=== PATIENT | female | born 1975 | race Two or more races ===

== ENCOUNTER 2020-09-02 03:48 | Emergency (ER) | payer SELFPAY ==
[~2020-09-02] VITALS: Ht 157.5 cm; Wt 80.7 kg
[2020-09-02] MEDS ORDERED: KETOROLAC TROMETH 30 MG/ML 1ML VIAL IV ONE (08:45)
[2020-09-02] MEDS ORDERED: ONDANSETRON HCL 4 MG/2 ML VIAL IV ONE (08:45)
[2020-09-02] MEDS ORDERED: SODIUM CHLORIDE 0.9% 1,000 ML IV ONE ×2 (08:45)
[2020-09-02] MEDS ORDERED: cefTRIAXone 1GM/50ML D5W 50 ML IV ONE (08:45)
[2020-09-02] MEDS ORDERED: TAMSULOSIN HYDROCHLORIDE 0.4 MG CAP PO ONE (08:45)
[2020-09-02 09:37] LABS: Basophils # (auto) 0 10 ^3/uL (0-0.2); Basophils % (auto) 0.2 % (0.0-2.0); Eosinophils # (auto) 0 10 ^3/uL (0-0.8); Hemoglobin 15.4 g/dL (12.2-16.2); Lymphocytes # (auto) 1.6 10 ^3/uL (0.4-5.4); Lymphocytes % (auto) 12.3 % (10.0-50.0); Mean Corpuscular Hemoglobin 30.6 pg (28.0-32.0); Mean Corpuscular Hgb Conc. 32.8 g/dL (32.0-36.0); Mean Corpuscular Volume 93.4 fL (80.0-100.0); Monocytes # (auto) 0.5 10 ^3/uL (0-1.3); Monocytes % (auto) 3.8 % (0.0-12.0); Neutrophils # (auto) 10.9 10 ^3/uL (1.6-8.6); Neutrophils % (auto) 83.7 % (37.0-80.0); Nucleated Red Blood Cells % 0.2 %; Platelet Count (auto) 269 10^3/uL (140-450); Red Blood Cells 5.03 10^6/uL (4.0-5.20); Red Cell Distribution Width 13.3 % (11.8-14.3)
[2020-09-02 09:42] LABS: Urine Bacteria FEW /hpf (None Seen); Urine Blood 1+ /uL (Negative); Urine Specific Gravity 1.018 (1.001-1.035); Urine WBC 4 /hpf (0 - 5)
[2020-09-02 09:54] LABS: Albumin 4.4 g/dL (3.4-5.0); Calcium 9.4 mg/dL (8.5-10.1); Potassium 3.8 mmol/L (3.5-5.1)
[2020-09-02 09:57] LABS: BUN/Creatinine Ratio 20.8; Bilirubin, Total 0.4 mg/dL (0.2-1.0); Total Protein 8.7 g/dL (6.4-8.2)
[2020-09-02 12:19] VITALS: BP 129/74
== END 2020-09-02 13:18 | disposition home or self-care (01) ==
LOC: ER 03:51
DX: N13.2 Hydronephrosis with renal and ureteral calculous obstruction (principal)
CPT/HCPCS: 36415; 74176; 80053; 81001; 83690; 85025; 96365; 96375; 99284; J1885; J2405

== ENCOUNTER 2022-01-12 00:17 | Emergency (ER) | payer OTHER ==
[~2022-01-12] VITALS: Ht 157.5 cm; Wt 83.9 kg
[2022-01-12] MEDS ORDERED: diphenhdrAMINE HCL 25 MG CAP PO ONE (00:45)
[2022-01-12] MEDS ORDERED: KETOROLAC TROMETH 30 MG/ML 1ML VIAL IV ONE (00:45)
[2022-01-12] MEDS ORDERED: ONDANSETRON HCL 4 MG/2 ML VIAL IV ONE (00:45)
[2022-01-12] MEDS ORDERED: SODIUM CHLORIDE 0.9% 1,000 ML IV ONE (00:45)
[2022-01-12] MEDS ORDERED: IOHEXOL 350 MG/ML 100ML IJ ONE (00:46)
[2022-01-12 01:22] LABS: Basophils # (auto) 0.1 10 ^3/uL (0-0.2); Basophils % (auto) 0.9 % (0.0-2.0); Eosinophils # (auto) 0.1 10 ^3/uL (0-0.8); Eosinophils % (auto) 1.3 % (0.0-7.0); Hematocrit 42.3 % (36.0-46.0); Hemoglobin 14.6 g/dL (12.2-16.2); Lymphocytes # (auto) 2.5 10 ^3/uL (0.4-5.4); Lymphocytes % (auto) 31.4 % (10.0-50.0); Mean Corpuscular Hemoglobin 31.1 pg (28.0-32.0); Mean Corpuscular Hgb Conc. 34.6 g/dL (32.0-36.0); Mean Corpuscular Volume 89.9 fL (80.0-100.0); Monocytes # (auto) 0.6 10 ^3/uL (0-1.3); Neutrophils # (auto) 4.6 10 ^3/uL (1.6-8.6); Neutrophils % (auto) 58.4 % (37.0-80.0); Nucleated Red Blood Cells % 0.1 %; Red Cell Distribution Width 12.8 % (11.8-14.3); White Blood Cell 7.9 10^3/uL (4.4-10.8)
[2022-01-12 01:43] LABS: Albumin 4.1 g/dL (3.4-5.0); BUN/Creatinine Ratio 26.7; Calcium 8.9 mg/dL (8.5-10.1); Potassium 3.7 mmol/L (3.5-5.1)
[2022-01-12 01:45] LABS: Bilirubin, Total 0.4 mg/dL (0.2-1.0); Total Protein 7.8 g/dL (6.4-8.2)
[2022-01-12 02:49] LABS: Urine Bacteria FEW /hpf (None Seen); Urine Blood Negative /uL (Negative); Urine Specific Gravity 1.008 (1.001-1.035); Urine WBC <1 /hpf (0 - 5)
[2022-01-12 05:31] VITALS: BP 104/68
== END 2022-01-12 05:32 | disposition home or self-care (01) ==
LOC: ER 00:17
DX: G43.909 Migraine, unspecified, not intractable, without status migrainosus (principal); E78.5 Hyperlipidemia, unspecified; Z90.710 Acquired absence of both cervix and uterus
CPT/HCPCS: 36415; 70496; 70498; 76705; 80053; 81001; 85025; 96361; 96374; 99285; J2405; J7030; Q9967; J1885

== ENCOUNTER 2022-08-02 10:32 | Emergency (ER) | payer OTHER ==
[~2022-08-02] VITALS: Ht 157.5 cm; Wt 77.0 kg
[2022-08-02 10:33] VITALS: BP 106/78
[2022-08-02 11:04] LABS: Basophils # (auto) 0 10 ^3/uL (0-0.2); Basophils % (auto) 0.4 % (0.0-2.0); Eosinophils # (auto) 0.1 10 ^3/uL (0-0.8); Eosinophils % (auto) 0.9 % (0.0-7.0); Lymphocytes # (auto) 2.3 10 ^3/uL (0.4-5.4); Lymphocytes % (auto) 43.5 % (10.0-50.0); Mean Corpuscular Hemoglobin 30.2 pg (28.0-32.0); Mean Corpuscular Hgb Conc. 33.2 g/dL (32.0-36.0); Monocytes # (auto) 0.3 10 ^3/uL (0-1.3); Monocytes % (auto) 6.5 % (0.0-12.0); Neutrophils # (auto) 2.6 10 ^3/uL (1.6-8.6); Neutrophils % (auto) 48.7 % (37.0-80.0); Nucleated Red Blood Cells % 0.1 %; Red Blood Cells 4.62 10^6/uL (4.0-5.20); White Blood Cell 5.4 10^3/uL (4.4-10.8)
[2022-08-02 11:14] LABS: Urine Bacteria NONE SEEN /hpf (None Seen); Urine Blood Negative /uL (Negative); Urine WBC 1 /hpf (0 - 5)
[2022-08-02 11:22] LABS: Albumin 3.9 g/dL (3.4-5.0); BUN/Creatinine Ratio 14.9; Calcium 8.8 mg/dL (8.5-10.1); Potassium 4.2 mmol/L (3.5-5.1)
[2022-08-02 11:25] LABS: Bilirubin, Total 0.4 mg/dL (0.2-1.0); Total Protein 7.6 g/dL (6.4-8.2)
== END 2022-08-02 12:27 | disposition home or self-care (01) ==
LOC: ER 10:32
DX: R10.9 Unspecified abdominal pain (principal); E78.5 Hyperlipidemia, unspecified; Z90.710 Acquired absence of both cervix and uterus
CPT/HCPCS: 36415; 80053; 81001; 81025; 85025

== ENCOUNTER 2023-01-15 11:30 | Inpatient (IN) | payer OTHER ==
[~2023-01-15] VITALS: Ht 157.5 cm; Wt 83.9 kg
[2023-01-15] MEDS ORDERED: KETOROLAC TROMETH 30 MG/ML 1ML VIAL IV ONE (12:30)
[2023-01-15] MEDS ORDERED: SODIUM CHLORIDE 0.9% 1,000 ML IV ONE (12:30)
[2023-01-15 12:50] LABS: Basophils # (auto) 0 10 ^3/uL (0-0.2); Basophils % (auto) 0.2 % (0.0-2.0); Eosinophils # (auto) 0 10 ^3/uL (0-0.8); Eosinophils % (auto) 0.2 % (0.0-7.0); Hemoglobin 14.2 g/dL (12.2-16.2); Lymphocytes # (auto) 2.2 10 ^3/uL (0.4-5.4); Lymphocytes % (auto) 23.3 % (10.0-50.0); Mean Corpuscular Hemoglobin 31.5 pg (28.0-32.0); Mean Corpuscular Hgb Conc. 35.4 g/dL (32.0-36.0); Mean Corpuscular Volume 88.9 fL (80.0-100.0); Monocytes # (auto) 0.6 10 ^3/uL (0-1.3); Monocytes % (auto) 6.1 % (0.0-12.0); Neutrophils # (auto) 6.6 10 ^3/uL (1.6-8.6); Neutrophils % (auto) 70.2 % (37.0-80.0); Red Blood Cells 4.49 10^6/uL (4.0-5.20); Red Cell Distribution Width 12.6 % (11.8-14.3); White Blood Cell 9.4 10^3/uL (4.4-10.8)
[2023-01-15 13:01] LABS: Albumin 3.9 g/dL (3.4-5.0); Potassium 3.6 mmol/L (3.5-5.1)
[2023-01-15 13:04] LABS: BUN/Creatinine Ratio 15.5 (10.0-20.0); Bilirubin, Total 0.6 mg/dL (0.2-1.0); Total Protein 7.3 g/dL (6.4-8.2)
[2023-01-15 14:40] LABS: Urine Bacteria NONE SEEN /hpf (None Seen); Urine Blood Negative /uL (Negative); Urine Specific Gravity 1.018 (1.001-1.035); Urine WBC 1 /hpf (0 - 5)
[2023-01-15] MEDS ORDERED: metroNIDAZOLE 500MG/100ML 100 ML IV ONE (15:30)
[2023-01-15] MEDS ORDERED: cefTRIAXone 1GM/50ML D5W 50 ML IV ONE (15:30)
[2023-01-15 20:29] LABS: Cholesterol 126 mg/dL (< 200); Triglycerides 51 mg/dL (< 150)
[2023-01-15 20:32] LABS: HDL Cholesterol 52 mg/dL (40-59); LDL Cholesterol 72 mg/dL (< 100)
[2023-01-15] MEDS ORDERED: ACETAMINOPHEN 325 MG TAB PO PRN (21:00)
[2023-01-15 22:23] LABS: Cholesterol 123 mg/dL (< 200)
[2023-01-15 22:25] LABS: HDL Cholesterol 50 mg/dL (40-59); LDL Cholesterol 68 mg/dL (< 100); Triglycerides 59 mg/dL (< 150)
[2023-01-15] MEDS: SODIUM CHLORIDE 0.9% 1,000 ML IV SCH (23:45)
[2023-01-15] MEDS: metroNIDAZOLE 500MG/100ML 100 ML IV SCH (23:47)
[2023-01-16] MEDS: metroNIDAZOLE 500MG/100ML 100 ML IV SCH ×3 (06:02→23:14)
[2023-01-16 06:25] LABS: Basophils # (auto) 0 10 ^3/uL (0-0.2); Basophils % (auto) 0.4 % (0.0-2.0); Eosinophils # (auto) 0.1 10 ^3/uL (0-0.8); Eosinophils % (auto) 1.6 % (0.0-7.0); Hematocrit 35.3 % (36.0-46.0); Hemoglobin 12.7 g/dL (12.2-16.2); Lymphocytes # (auto) 2.7 10 ^3/uL (0.4-5.4); Mean Corpuscular Hemoglobin 31.9 pg (28.0-32.0); Mean Corpuscular Volume 88.6 fL (80.0-100.0); Monocytes # (auto) 0.6 10 ^3/uL (0-1.3); Monocytes % (auto) 8.6 % (0.0-12.0); Neutrophils # (auto) 3.8 10 ^3/uL (1.6-8.6); Neutrophils % (auto) 52.4 % (37.0-80.0); Red Blood Cells 3.98 10^6/uL (4.0-5.20); Red Cell Distribution Width 12.9 % (11.8-14.3); White Blood Cell 7.2 10^3/uL (4.4-10.8)
[2023-01-16 06:37] LABS: Calcium 8.2 mg/dL (8.5-10.1); Potassium 3.4 mmol/L (3.5-5.1)
[2023-01-16 06:42] LABS: BUN/Creatinine Ratio 19.3 (10.0-20.0); Bilirubin, Total 0.5 mg/dL (0.2-1.0); Total Protein 6.4 g/dL (6.4-8.2)
[2023-01-16] MEDS: cefTRIAXone 1GM/50ML D5W 50 ML IV SCH (09:21)
[2023-01-16] MEDS: ENOXAPARIN SOD 40 MG/0.4 ML SYRINGE SC SCH (11:05)
[2023-01-16] MEDS: SODIUM CHLORIDE 0.9% 1,000 ML IV SCH (11:06)
[2023-01-16 22:20] VITALS: BP 112/63
[2023-01-17 05:00] VITALS: BP 100/64
[2023-01-17] MEDS: metroNIDAZOLE 500MG/100ML 100 ML IV SCH ×3 (05:54→22:14)
[2023-01-17 06:14] LABS: Basophils # (auto) 0 10 ^3/uL (0-0.2); Basophils % (auto) 0.3 % (0.0-2.0); Eosinophils # (auto) 0.1 10 ^3/uL (0-0.8); Eosinophils % (auto) 1.2 % (0.0-7.0); Hematocrit 37.8 % (36.0-46.0); Lymphocytes # (auto) 2.4 10 ^3/uL (0.4-5.4); Lymphocytes % (auto) 45.9 % (10.0-50.0); Mean Corpuscular Hemoglobin 31.8 pg (28.0-32.0); Mean Corpuscular Hgb Conc. 34.4 g/dL (32.0-36.0); Mean Corpuscular Volume 92.6 fL (80.0-100.0); Monocytes # (auto) 0.4 10 ^3/uL (0-1.3); Monocytes % (auto) 7.9 % (0.0-12.0); Neutrophils # (auto) 2.4 10 ^3/uL (1.6-8.6); Neutrophils % (auto) 44.7 % (37.0-80.0); Nucleated Red Blood Cells % 0.1 %; Red Blood Cells 4.08 10^6/uL (4.0-5.20); Red Cell Distribution Width 12.7 % (11.8-14.3); White Blood Cell 5.3 10^3/uL (4.4-10.8)
[2023-01-17 06:30] LABS: Calcium 8.8 mg/dL (8.5-10.1); Potassium 3.9 mmol/L (3.5-5.1)
[2023-01-17 09:00] VITALS: BP 109/68
[2023-01-17] MEDS: ENOXAPARIN SOD 40 MG/0.4 ML SYRINGE SC SCH (09:19)
[2023-01-17] MEDS: cefTRIAXone 1GM/50ML D5W 50 ML IV SCH (09:19)
[2023-01-17 10:13] LABS: INR 1.05 (0.9-1.15)
[2023-01-17] MEDS: SODIUM CHLORIDE 0.9% 1,000 ML IV SCH ×2 (12:49→13:11)
[2023-01-17 13:00] VITALS: BP 116/76
[2023-01-17 17:00] VITALS: BP 102/56
[2023-01-17 22:00] VITALS: BP 108/64
[2023-01-18] MEDS: SODIUM CHLORIDE 0.9% 1,000 ML IV SCH ×2 (02:20→17:35)
[2023-01-18 04:56] LABS: Basophils # (auto) 0 10 ^3/uL (0-0.2); Basophils % (auto) 0.3 % (0.0-2.0); Eosinophils # (auto) 0.1 10 ^3/uL (0-0.8); Eosinophils % (auto) 1.3 % (0.0-7.0); Hematocrit 38.4 % (36.0-46.0); Lymphocytes # (auto) 2.3 10 ^3/uL (0.4-5.4); Lymphocytes % (auto) 47.5 % (10.0-50.0); Mean Corpuscular Hemoglobin 31.3 pg (28.0-32.0); Mean Corpuscular Hgb Conc. 33.9 g/dL (32.0-36.0); Mean Corpuscular Volume 92.4 fL (80.0-100.0); Monocytes # (auto) 0.3 10 ^3/uL (0-1.3); Monocytes % (auto) 6.8 % (0.0-12.0); Neutrophils # (auto) 2.2 10 ^3/uL (1.6-8.6); Neutrophils % (auto) 44.1 % (37.0-80.0); Nucleated Red Blood Cells % 0.1 %; Red Blood Cells 4.16 10^6/uL (4.0-5.20); Red Cell Distribution Width 12.7 % (11.8-14.3); White Blood Cell 4.9 10^3/uL (4.4-10.8)
[2023-01-18 05:00] VITALS: BP 103/58
[2023-01-18 05:14] LABS: BUN/Creatinine Ratio 13.1 (10.0-20.0); Calcium 8.7 mg/dL (8.5-10.1); Potassium 3.9 mmol/L (3.5-5.1)
[2023-01-18] MEDS: metroNIDAZOLE 500MG/100ML 100 ML IV SCH ×3 (05:16→22:17)
[2023-01-18] MEDS ORDERED: BUPIVACAINE 0.25% INJ 50ML VIAL ONE (07:36)
[2023-01-18] MEDS ORDERED: LIDOCAINE W/ EPINEPHRINE 2% INJ 20ML VIAL ONE (07:37)
[2023-01-18] MEDS ORDERED: ceFAZolin 1GM/50ML 100 ML IV ONE (08:23)
[2023-01-18] MEDS ORDERED: SUCCINYLCHOLINE CHLORIDE 20 MG/ML 10ML VIAL IV ONE (08:40)
[2023-01-18] MEDS ORDERED: FAMOTIDINE (10MG/ML) 2ML VL IV ONE (08:40)
[2023-01-18] MEDS ORDERED: ROCURONIUM 10MG/ML 10ML VIAL IV ONE (08:40)
[2023-01-18] MEDS ORDERED: PROPOFOL 10 MG/ML 20 ML IV ONE (08:42)
[2023-01-18] MEDS ORDERED: DexAMETHasone SOD PHOS 10MG/1ML VIAL INJ ONE (08:42)
[2023-01-18] MEDS ORDERED: ONDANSETRON HCL 4 MG/2 ML VIAL ONE (08:42)
[2023-01-18] MEDS ORDERED: HYDROmorphone HCL 2 MG/ML VL/or syr ONE (08:42)
[2023-01-18] MEDS ORDERED: LIDOCAINE 2% (LOCAL ANESTH.) PF 5ml SDV ONE (08:42)
[2023-01-18] MEDS ORDERED: GLYCOPYRROLATE 0.2 MG/ML 1ML VIAL ONE (08:42)
[2023-01-18] MEDS ORDERED: MIDAZOLAM HCL 2MG/2ML 2ml VIAL (1mg/ml) ONE (08:42)
[2023-01-18] MEDS ORDERED: KETOROLAC TROMETH 30 MG/ML 1ML VIAL ONE (08:42)
[2023-01-18] MEDS ORDERED: fentaNYL CITRATE 100 MCG/2 ML VL ONE (08:43)
[2023-01-18] MEDS ORDERED: HYDROmorphone HCL 2 MG/ML VL/or syr IV PRN (08:45)
[2023-01-18] MEDS ORDERED: ONDANSETRON HCL 4 MG/2 ML VIAL IV PRN (08:45)
[2023-01-18] MEDS ORDERED: BUPIVACAINE 0.25% INJ 50ML VIAL IJ ONE (10:00)
[2023-01-18] MEDS ORDERED: HYDROcodone-ACET 5/325MG TAB PO PRN (10:15)
[2023-01-18] MEDS: cefTRIAXone 1GM/50ML D5W 50 ML IV SCH (12:17)
[2023-01-18] MEDS: ENOXAPARIN SOD 40 MG/0.4 ML SYRINGE SC SCH (12:17)
[2023-01-18] MEDS: ONDANSETRON HCL 4 MG/2 ML VIAL IV PRN ×3 (12:49→22:17)
[2023-01-18 13:00] VITALS: BP 125/70
[2023-01-18 16:54] VITALS: BP 112/74
[2023-01-18 20:00] VITALS: BP 123/68
[2023-01-18 22:00] VITALS: BP 112/70
[2023-01-18] MEDS: KETOROLAC TROMETH 30 MG/ML 1ML VIAL IV PRN (22:24)
[2023-01-19] MEDS: SODIUM CHLORIDE 0.9% 1,000 ML IV SCH (05:00)
[2023-01-19 05:16] LABS: Basophils # (auto) 0 10 ^3/uL (0-0.2); Basophils % (auto) 0.2 % (0.0-2.0); Eosinophils # (auto) 0 10 ^3/uL (0-0.8); Eosinophils % (auto) 0.1 % (0.0-7.0); Hematocrit 36.9 % (36.0-46.0); Hemoglobin 13.1 g/dL (12.2-16.2); Lymphocytes # (auto) 1.8 10 ^3/uL (0.4-5.4); Lymphocytes % (auto) 17.7 % (10.0-50.0); Mean Corpuscular Hemoglobin 31.4 pg (28.0-32.0); Mean Corpuscular Hgb Conc. 35.4 g/dL (32.0-36.0); Mean Corpuscular Volume 88.7 fL (80.0-100.0); Monocytes # (auto) 0.7 10 ^3/uL (0-1.3); Neutrophils # (auto) 7.8 10 ^3/uL (1.6-8.6); Red Blood Cells 4.16 10^6/uL (4.0-5.20); Red Cell Distribution Width 12.8 % (11.8-14.3); White Blood Cell 10.4 10^3/uL (4.4-10.8)
[2023-01-19] MEDS: metroNIDAZOLE 500MG/100ML 100 ML IV SCH ×2 (05:22→14:32)
[2023-01-19 05:26] VITALS: BP 112/73
[2023-01-19 05:28] LABS: BUN/Creatinine Ratio 10.7 (10.0-20.0); Calcium 8.6 mg/dL (8.5-10.1); Potassium 3.7 mmol/L (3.5-5.1)
[2023-01-19] MEDS: ONDANSETRON HCL 4 MG/2 ML VIAL IV PRN (05:29)
[2023-01-19] MEDS: KETOROLAC TROMETH 30 MG/ML 1ML VIAL IV PRN (05:30)
[2023-01-19 08:05] VITALS: BP 111/66
[2023-01-19 08:47] VITALS: BP 111/66
[2023-01-19] MEDS: cefTRIAXone 1GM/50ML D5W 50 ML IV SCH (08:56)
[2023-01-19] MEDS: ENOXAPARIN SOD 40 MG/0.4 ML SYRINGE SC SCH (09:35)
[2023-01-19] MEDS ORDERED: AMOX-277 PO (12:34)
[2023-01-19] MEDS ORDERED: DOCU-94 PO (12:34)
[2023-01-19] MEDS ORDERED: HYDR-4902 PO ×2 (12:35→12:38)
[2023-01-19 13:16] VITALS: BP 110/76
[2023-01-19 15:25] VITALS: BP 100/76
== END 2023-01-19 16:14 | disposition home or self-care (01) | DRG 418 ==
LOC: ER 11:30 → OVERFLOW 20:57 → CENTRAL 01-16 21:35
PROVIDERS: ADMIT Nurse Practitioner Family; ATTEND Internal Medicine
PROC: 0FT44ZZ Resection of Gallbladder, Percutaneous Endoscopic Approach (ICD-10-PCS; principal; 2023-01-18 08:45)
DX: K81.0 Acute cholecystitis (principal); K57.32 Diverticulitis of large intestine without perforation or abscess without bleeding; Z20.822 Contact with and (suspected) exposure to COVID-19; N20.0 Calculus of kidney; Z87.442 Personal history of urinary calculi; E66.01 Morbid (severe) obesity due to excess calories; K76.0 Fatty (change of) liver, not elsewhere classified; K82.8 Other specified diseases of gallbladder; K66.0 Peritoneal adhesions (postprocedural) (postinfection); Z68.32 Body mass index [BMI] 32.0-32.9, adult
CPT/HCPCS: 36415; 74176; 78226; 80048; 80053; 80061; 81001; 83036; 83605; 84443; 84484; 85025; 85610; 86850; 86900; 86901; 87040; 87177; 87426; 87493; 96361; 96365; 96368; 96372; 96375; 96376; G0378; J0330; J0690; J0696; J1100; J1885; J2001; J2250; J2405; J2704; J3490

== ENCOUNTER 2023-06-12 06:37 | Inpatient (IN) | payer OTHER ==
[~2023-06-12] VITALS: Ht 157.5 cm; Wt 79.4 kg
[~2023-06-12 06:37] MED LIST: AMOX875T4 PO; DOCU-94 PO; HYDR-4902 PO
[2023-06-12] MEDS ORDERED: ONDANSETRON ODT 4 MG TAB PO ONE (08:00)
[2023-06-12] MEDS ORDERED: KETOROLAC TROMETH 60MG/2ML VIAL IM ONE (08:00)
[2023-06-12 08:37] LABS: Urine Bacteria FEW /hpf (None Seen); Urine Blood Negative /uL (Negative); Urine Budding Yeast MODERATE /hpf (None Seen); Urine Clarity CLOUDY (Clear); Urine Color Yellow (Yellow); Urine Mucus FEW (None Seen); Urine Protein, UAD TRACE (Negative); Urine Specific Gravity 1.021 (1.001-1.035); Urine Urobilinogen Normal (Negative); Urine WBC 5 /hpf (0 - 5); Urine WBC Clumps PRESENT /hpf (None Seen)
[2023-06-12 08:51] LABS: Basophils # (auto) 0 10 ^3/uL (0-0.2); Basophils % (auto) 0.2 % (0.0-2.0); Eosinophils # (auto) 0 10 ^3/uL (0-0.8); Eosinophils % (auto) 0.1 % (0.0-7.0); Hematocrit 42.8 % (36.0-46.0); Hemoglobin 14.2 g/dL (12.2-16.2); Lymphocytes # (auto) 1.7 10 ^3/uL (0.4-5.4); Lymphocytes % (auto) 13.3 % (10.0-50.0); Mean Corpuscular Hemoglobin 30.3 pg (28.0-32.0); Mean Corpuscular Hgb Conc. 33.2 g/dL (32.0-36.0); Mean Corpuscular Volume 91.1 fL (80.0-100.0); Monocytes # (auto) 0.7 10 ^3/uL (0-1.3); Monocytes % (auto) 5.5 % (0.0-12.0); Neutrophils # (auto) 10.2 10 ^3/uL (1.6-8.6); Neutrophils % (auto) 80.9 % (37.0-80.0); Red Blood Cells 4.69 10^6/uL (4.0-5.20); Red Cell Distribution Width 13.3 % (11.8-14.3); White Blood Cell 12.7 10^3/uL (4.4-10.8)
[2023-06-12] MEDS ORDERED: CIPROFLOXACIN HCL 500 MG TAB PO ONE (09:15)
[2023-06-12] MEDS ORDERED: metroNIDAZOLE 500 MG TAB PO ONE (09:15)
[2023-06-12 10:58] LABS: Chloride 106 mmol/L (98-107); Sodium 138 mmol/L (136-145)
[2023-06-12 11:02] LABS: Anion Gap 9.3 (5-15); Carbon Dioxide 22.7 mmol/L (20-30)
[2023-06-12 11:09] LABS: Calcium 9.3 mg/dL (8.7-10.4)
[2023-06-12 11:10] LABS: Alanine Aminotransferase 30 U/L (7-40)
[2023-06-12 11:19] LABS: Glucose 138 mg/dL (74-106); Lipase 37 U/L (12-53)
[2023-06-12 11:20] LABS: Alkaline Phosphatase 82 U/L (46-116)
[2023-06-12 11:23] LABS: Albumin 4.5 g/dL (3.2-4.8); Aspartate Aminotransferase 12 U/L (13-40)
[2023-06-12 11:24] LABS: Bilirubin, Total 0.8 mg/dL (0.2-1.0); Total Protein 7.1 g/dL (5.7-8.2)
[2023-06-12] MEDS ORDERED: MORPHINE SULFATE INJ 2 MG/ml SYRG IV PRN (12:30)
[2023-06-12] MEDS ORDERED: ACETAMINOPHEN 325 MG TAB PO PRN (12:30)
[2023-06-12] MEDS ORDERED: SODIUM CHLORIDE 0.9% 1,000 ML IV SCH (12:30)
[2023-06-12] MEDS ORDERED: HYDROcodone-ACET 5/325MG TAB PO PRN (12:30)
[2023-06-12] MEDS ORDERED: ONDANSETRON HCL 4 MG/2 ML VIAL IV PRN (12:30)
[2023-06-12] MEDS ORDERED: IOHEXOL 300 MG/ML 100ML BOTTLE IJ ONE (12:53)
[2023-06-12 13:20] LABS: BUN/Creatinine Ratio 18.8 (10.0-20.0); Blood Urea Nitrogen 13 mg/dL (9-23)
[2023-06-12] MEDS: PIPERACILLIN-TAZOB 3.375GM 100 ML IV SCH (19:46)
[2023-06-13] VITALS (7 sets, daily range): BP systolic 96–112; BP diastolic 55–68; PULSE 68–112; RESP 14–18; TEMP 36.7; O2SAT 95–99
[2023-06-13] MEDS: PIPERACILLIN-TAZOB 3.375GM 100 ML IV SCH ×2 (05:43→13:15)
[2023-06-13] MEDS ORDERED: ENOXAPARIN SOD 40 MG/0.4 ML SYRINGE SC SCH (10:00)
[2023-06-13] MEDS ORDERED: HYDR-4902 PO (12:09)
[2023-06-13] MEDS ORDERED: AUG875T PO (12:09)
== END 2023-06-13 18:15 | disposition home or self-care (01) | DRG 392 ==
LOC: ER 06:37 → OVERFLOW 12:29 → EAST 06-13 05:15
PROVIDERS: ADMIT Internal Medicine; ATTEND Internal Medicine
DX: K57.32 Diverticulitis of large intestine without perforation or abscess without bleeding (principal); N28.89 Other specified disorders of kidney and ureter; I10 Essential (primary) hypertension; E66.01 Morbid (severe) obesity due to excess calories; E78.5 Hyperlipidemia, unspecified; D72.829 Elevated white blood cell count, unspecified; E11.9 Type 2 diabetes mellitus without complications; Z90.721 Acquired absence of ovaries, unilateral; Z90.710 Acquired absence of both cervix and uterus; Z87.442 Personal history of urinary calculi; Z90.49 Acquired absence of other specified parts of digestive tract; Z68.32 Body mass index [BMI] 32.0-32.9, adult
CPT/HCPCS: 36415; 74176; 74178; 76775; 76856; 80053; 81001; 83690; 84484; 85025; 96372; 97163; G0378; J1885; J2405; J2543; Q0162